=== PATIENT | male | born 1990 | race Two or more races ===

== ENCOUNTER 2017-10-03 08:44 | Emergency (ER) | payer OTHER ==
[2017-10-03 08:58] VITALS: BP 122/65; PULSE 64; TEMP 98.2; BMI 32.8
[2017-10-03] MEDS ORDERED: IBUPROFEN 600 MG TABLET (FP) PO ONE (09:13)
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
== END 2017-10-03 09:21 | disposition home or self-care (01) ==
LOC: JERFT 08:44
DX: S46.811A Strain of other muscles, fascia and tendons at shoulder and upper arm level, right arm, initial encounter (principal); V73.5XXA Driver of bus injured in collision with car, pick-up truck or van in traffic accident, initial encounter; Y93.89 Activity, other specified; Y92.410 Unspecified street and highway as the place of occurrence of the external cause; Y99.0 Civilian activity done for income or pay
CPT/HCPCS: 99281-25

== ENCOUNTER 2019-09-26 20:23 | Emergency (ER) | payer SELFPAY ==
[2019-09-26 20:48] VITALS: BP 136/81; PULSE 98; TEMP 98.3; BMI 33.8
[2019-09-26] MEDS ORDERED: DIPHTH,PERTUSS(ACELL),TET 0.5 ML DISP.SYRIN IM ONE ×2 (22:43→23:01)
[2019-09-26] MEDS ORDERED: IBUPROFEN 400 MG TABLET (FP) PO ONE ×2 (23:12→23:14)
--- NOTE | 2019-09-26 23:14 | PDOC ---
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 Patient reported dog van owner operator was there and did first aid wound cleaning for him and applied cream to wound. Patient reported dog on a clean wound with soap and water immediately after the incident. Patient does not recall last tetanus vaccine. Denies numbness or tingling sensation. Denies any other symptoms Timing/Duration: reports: this morning Past History - Past Medical History Allergies/Adverse Reactions: Allergies Allergy/AdvReac Type Severity Reaction Status Date / Time No Known Allergies Allergy Verified 09/26/19 20:48 Home Medications: Ambulatory Orders Amoxicillin/Potassium Clav [Augmentin 875-125 Tablet] 1 each PO BID 7 Days #14 tablet 09/26/19 Ibuprofen 800 mg PO Q8H PRN #20 tablet 09/26/19 COPD: No - Psycho Social/Smoking Cessation Hx Smoking History: Never smoked Have you smoked in the past 12 months: No Information on smoking cessation initiated: No Hx Alcohol Use: No Drug/Substance Use Hx: No Substance Use Type: None Review of Systems - Review of Systems Able to Perform ROS?: Yes Is the patient limited Kinyarwanda proficient: No Constitutional: No: Chills, Fever HEENTM: No: Symptoms Reported Respiratory: No: Symptoms reported Cardiac (ROS): No: Symptoms Reported ABD/GI: No: Symptoms Reported Musculoskeletal: Yes: Symptoms Reported, See HPI, Muscle Pain (left distal middle finger over laceration) Integumentary: Yes: Symptoms Reported, See HPI, Other (laceration to left middle finger from dog bite) *Physical Exam - Vital Signs Last Vital Signs Temp Pulse Resp BP Pulse Ox 98.3 F 98 H 18 136/81 100 09/26/19 20:46 09/26/19 20:46 09/26/19 20:46 09/26/19 20:46 09/26/19 20:46 - Physical Exam 09/26/19 23:27 GENERAL: Well developed, well nourished. Awake and alert. No acute distress. NECK: Supple. Full ROM. MUSCULOSKELETAL Normal range of motion at all joints. SKIN: Warm and dry. Normal capillary refill. 2 cm linear superficial laceration to plantar aspect of distal phalange of left middle finger with minimal bleeding another 1 mm laceration to lateral side of nailbed of left middle finger. Mild swelling over laceration NEUROLOGICAL: Alert, awake, appropriate. Gait is normal without ataxia. PSYCHIATRIC: Cooperative. Good eye contact. Appropriate mood General Appearance: Yes: Nourished, Appropriately Dressed. No: Apparent Distress Procedures - Splinting Splint Location: Left: Finger (middle finger) Pre-Proc Neuro Vasc Exam: normal Pre-Made Type: metal Splint Type: Yes: Finger Post-Proc Neuro Vasc Exam: normal Moe Bandage: no Sling: No Complications: No Post splint xray: No Good repositioning: No ED Treatment Course - Medications Given in the ED: ED Medications Discontinued Medications Generic Name Dose Route Start Last Admin Trade Name Freq PRN Reason Stop Dose Admin Diphtheria/Tetanus/Acell Pertussis 0.5 ml 09/26/19 22:43 09/26/19 22:58 Boostrix - IM 09/26/19 22:44 0.5 ml .ONCE ONE Administration Medical Decision Making - Medical Decision Making 09/26/19 23:23 Patient with no significant past medical history present with complaint of laceration to distal aspect of left middle finger 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 Patient reported dog van owner operator was there and did first aid wound cleaning for him and applied cream to wound. Patient reported dog on a clean wound with soap and water immediately after the incident. Patient does not recall last tetanus vaccine. Denies numbness or tingling sensation. Denies any other symptoms Exam significant for 2 cm linear superficial laceration to plantar aspect of distal phalange of left middle finger and lateral aspect of nailbed of left middle finger with minimal bleeding. Wound irrigated with normal saline and cleaned with Betadine. Steri-Strips applied to wound to aid with healing with second intention. Bacitracin applied to wound. Wound wrapped with stretch gauze to protect finger and finger splint applied to finger. Patient tolerated procedure well. Tetanus vaccine given by nurse. Motrin 800 mg p.o. ordered for pain. Patient stable for discharge Augmentin antibiotics twice daily for a week with dermatology follow-up in 2 to 3 days for reassessment Discharge - Discharge Information Problems reviewed: Yes Clinical Impression/Diagnosis: Dog bite of middle finger Qualifiers: Encounter type: initial encounter Qualified Code(s): S61.258A - Open bite of other finger without damage to nail, initial encounter Laceration of left middle finger w/o foreign body w/o damage to nail Qualifiers: Encounter type: initial encounter Qualified Code(s): S61.213A - Laceration without foreign body of left middle finger without damage to nail, initial encounter Condition: Stable Disposition: HOME - Admission No - Additional Discharge Information Prescriptions: Amoxicillin/Potassium Clav [Augmentin 875-125 Tablet] 1 each PO BID 7 Days #14 tablet Ibuprofen 800 mg PO Q8H PRN #20 tablet PRN Reason: pain - Follow up/Referral Referrals: Elena Caal MD [Staff Physician] - - Patient Discharge Instructions Patient Printed Discharge Instructions: How to Care for a Wild Animal Bite, DI for Animal Bites Additional Instructions: You were given tetanus vaccine today. Keep wound clean and dry for the next 2 to 3 days. Remove top gauze after 2 days. Take prescribed antibiotics and finish. Take prescribed Motrin as needed for pain. Follow-up with no dog van owner operator about rabies vaccine status and follow-up accordingly if dog is vaccinated or not. Follow-up referred dermatology in 3 to 5 days for wound check - Post Discharge Activity Work/Back to School Note: Back to Work, Back to School
== END 2019-09-26 23:18 | disposition home or self-care (01) ==
LOC: JERFT 20:23
PROC: 2W3KX1Z Immobilization of Left Finger using Splint (ICD-10-PCS; principal; 2019-09-26)
DX: S61.253A Open bite of left middle finger without damage to nail, initial encounter (principal); W54.0XXA Bitten by dog, initial encounter; Y93.89 Activity, other specified; Y92.89 Other specified places as the place of occurrence of the external cause; Y99.0 Civilian activity done for income or pay
CPT/HCPCS: 90715; 99281-25